=== PATIENT | male | born 1965 | race Caucasian/White ===

== ENCOUNTER 2020-11-03 10:14 | Emergency (ER) | payer MEDICAID, SELFPAY ==
[2020-11-03 10:14] VITALS: BP 157/92; PULSE 81; RESP 18; TEMP 36.7; O2SAT 97; BMI 36.6
--- NOTE | 2020-11-03 10:17 | HMH.EDGENADL ---
ED Disposition Clinical Impression: Thrombocytopenia CHF (congestive heart failure) Qualifiers: Heart failure type: other Qualified Code(s): I50.9 - Heart failure, unspecified Disposition: Home, Self-Care Condition on Discharge: Good Referrals: PCP,No [Non-Staff] - Time of Disposition: 11:37 - Critical Care Critical Care Time: No Attestation: On 11/03/20, the high probability of a clinically significant, sudden or life threatening deterioration of the following system(s) required my full and direct attention, intervention and personal management. The time I documented below is in addition to time spent performing reported procedures but includes the following listed in this critical care notation. Medical Decision Making - Medical Records Medical records reviewed: Yes: I reviewed the patient's medical records. - Luis Inquiry Pt receiving controlled substance: No Vital Signs: 11/03/20 10:14 11/03/20 10:41 11/03/20 11:00 Temperature 98.0 F Temperature Source Oral Pulse Rate 82 84 Pulse Rate [Right] 81 Respiratory Rate 18 Blood Pressure 148/89 H 159/96 H Blood Pressure [Right Arm] 157/92 H Blood Pressure Mean 98 109 Blood Pressure Mean [Right Arm] 113 02 Sat by Pulse Oximetry 97 100 99 - Lab Data Lab results reviewed: Yes: I reviewed the patient's lab results. Lab Results 11/03/20 10:41: Sodium 139, Potassium 3.5, Chloride 110 H, Carbon Dioxide 24, Anion Gap 8.5, BUN 7 L, Creatinine 0.60 L, Estimated Creat Clear 238, Estimated GFR 139, Est GFR ( Amer) 169, Glucose 102 H, Calcium 8.3 L, NT-Pro-B Natriuret Pep 141 H 11/03/20 10:41: WBC 3.4 L, RBC 3.90 L, Hgb 11.5 L, Hct 35.2 L, MCV 90.3, MCH 29.6, MCHC 32.8, RDW 15.2, Plt Count 88 L, MPV 9.2, Neut % (Auto) 56.1, Lymph % (Auto) 29.1, [place] % (Auto) 8.0, Eos % (Auto) 5.4, Baso % (Auto) 1.3, Neut # (Auto) 1.9, Lymph # (Auto) 1.0, [place] # (Auto) 0.3, Eos # (Auto) 0.2, Baso # (Auto) 0.0 Result diagrams: 11/03/20 10:41 11/03/20 10:41 Orders (Tests/Meds): ED MEDICATIONS Discontinued Medications Generic Name Dose Route Start Last Admin Trade Name Brittany PRN Reason Stop Dose Admin Furosemide 20 mg 11/03/20 11:27 Furosemide 20 Mg/2 Ml Vial IV 11/03/20 11:28 ONCE ONE Medical Decision Narrative: 55yo M evaluated secondary to chronic leg pain. Patient's exam is unremarkable except for pitting lower extremity edema. He reports he does not take a diuretic. Patient also states Dr. Andre instructed him to come to the emergency department today; Dr. Andre [place] currently out of the country on vacation. Patient's laboratory studies are unremarkable except for a BNP of 141 and a low platelet count. Patient is treated with 1 dose of IV Lasix. General Adult HPI - General Stated complaint: LEG PAIN Time Seen by Provider: 11/03/20 10:17 Mode of Arrival: EMS - History of Present Illness HPI narrative: 55yo M that denies significant past medical history reports taking no medications daily presents to the emergency department secondary to leg pain. States has had leg pain for approximately 1 year. States he just seems worse today. He denies any fever, cough, shortness of breath, nausea/vomiting/diarrhea. - Related Data Home Medications Medication Instructions Recorded Confirmed folic acid 1 mg tablet 1 mg PO DAILY 10/16/20 10/16/20 lactulose 10 gram/15 mL (15 mL) 10 g PO DAILY 10/16/20 10/16/20 oral solution propranolol 10 mg tablet 10 mg PO BID 10/16/20 10/16/20 thiamine mononitrate (vit B1) 100 100 mg PO DAILY 10/16/20 10/16/20 mg tablet Previous Rx's Medication Instructions Recorded gabapentin 800 mg tablet 800 mg PO TID #90 tab 10/16/20 oxycodone 10 mg tablet 10 mg PO QID PRN #120 tab 10/16/20 Allergies Allergy/AdvReac Type Severity Reaction Status Date / Time No Known Allergies Allergy Verified 10/16/20 15:13 [facility] History - Hepatitis A Screen Drug use history?: No Attest
[2020-11-03 10:41] VITALS: BP 148/89; PULSE 82; O2SAT 100
[2020-11-03 10:52] LABS: Basophils % 1.3 % (0.1-2.0); Eosinophils # 0.2 K/mm3 (0.0-0.4); Eosinophils % 5.4 % (0.1-12.0); Hematocrit 35.2 % (42.0-52.0); Hemoglobin 11.5 g/dL (14.1-18.0); Lymphocytes % 29.1 % (10-50); Mean Corpuscular HGB Conc 32.8 g/dL (31.8-35.4); Mean Corpuscular Hemoglobin 29.6 pg (27.0-31.2); Mean Corpuscular Volume 90.3 fl (80-94); Mean Platelet Volume 9.2 fl (7.4-10.4); Monocytes # 0.3 K/mm3 (0.1-1.0); Neutrophils # 1.9 K/mm3 (1.8-7.8); Neutrophils % 56.1 % (37.0-80.0); Platelet Count 88 K/mm3 (142-424); Red Cell Distribution Width 15.2 % (11.5-17.5); White Blood Count 3.4 K/mm3 (4.8-10.8)
[2020-11-03 11:00] VITALS: BP 159/96; PULSE 84; O2SAT 99
[2020-11-03 11:02] LABS: Chloride 110 mmol/L (98-107); Potassium 3.5 mmoL/L (3.5-5.1); Sodium 139 mmol/L (136-145)
[2020-11-03 11:05] LABS: Anion Gap 8.5 mEq/L (5-15); Blood Urea Nitrogen 7 mg/dl (9-20); Calcium 8.3 mg/dl (8.4-10.2); Carbon Dioxide 24 mmol/L (22.0-30.0); Creatinine Clearance Estimated 238 mL/min (50-200); Estimated Glomerular Filt Rate 139 ml/min (>60); GFR (African American) 169 ML/MIN (>60); Glucose 102 mg/dl (74-100)
[2020-11-03 11:15] LABS: NT Pro Brain Natriuretic Pep. 141 pg/mL (0-125)
--- NOTE | 2020-11-03 11:46 | PC.NURSE ---
Called care management for transportation of pt back to residence.
--- NOTE | 2020-11-03 12:03 | SW/DCPLANNER ---
I have set this patient up with [facility] from ED.
[2020-11-03 12:21] VITALS: BP 142/94; PULSE 81; RESP 18; TEMP 36.7; O2SAT 100
== END 2020-11-03 12:22 | disposition home or self-care (01) ==
PROVIDERS: Emergency Provider Family Medicine; PCP Emergency Medicine
DX: D69.6 Thrombocytopenia, unspecified (principal); I50.9 Heart failure, unspecified; F17.210 Nicotine dependence, cigarettes, uncomplicated
CPT/HCPCS: 80048; 83880; 85025; 96374; 99281

== ENCOUNTER → 2021-01-06 13:43 | Outpatient (CLI) | payer MEDICAID, SELFPAY ==
[2021-01-06 14:20] LABS: Amphetamine/Metha Screen,Urine Negative ng/ml (<1000)
[2021-01-06 14:22] LABS: Barbiturates Screen,Urine Negative ng/ml (<200); Benzodiazepines Screen,Urine Positive ng/ml (<200)
[2021-01-06 14:23] LABS: Cannabinoid Screen,Urine Negative ng/ml (<50); Cocaine Screen,Urine Negative ng/ml (<300)
[2021-01-06 14:24] LABS: Methadone Screen,Urine Negative ng/ml (<300)
[2021-01-06 14:25] LABS: Opiate Screen,Urine Negative ng/ml (<300); Phencyclidine Screen,Urine Negative ng/ml (<25)
== END ==
PROVIDERS: Visit Provider Emergency Medicine
DX: Z79.899 Other long term (current) drug therapy (principal)
CPT/HCPCS: 80305

== ENCOUNTER → 2021-05-28 14:49 | Outpatient (CLI) | payer MEDICAID, SELFPAY ==
[2021-05-28 17:37] LABS: Amphetamine/Metha Screen,Urine Negative ng/ml (<1000); Barbiturates Screen,Urine Negative ng/ml (<200)
[2021-05-28 17:38] LABS: Benzodiazepines Screen,Urine Positive ng/ml (<200)
[2021-05-28 17:39] LABS: Cannabinoid Screen,Urine Negative ng/ml (<50); Cocaine Screen,Urine Negative ng/ml (<300)
[2021-05-28 17:40] LABS: Methadone Screen,Urine Negative ng/ml (<300); Opiate Screen,Urine Positive ng/ml (<300)
[2021-05-28 17:41] LABS: Phencyclidine Screen,Urine Negative ng/ml (<25)
== END ==
PROVIDERS: Visit Provider Emergency Medicine
DX: Z79.899 Other long term (current) drug therapy (principal)
CPT/HCPCS: 80305

== ENCOUNTER → 2021-10-06 10:44 | Outpatient (CLI) | payer MEDICAID, SELFPAY ==
[2021-10-06 12:28] LABS: Alanine Aminotransferase 15 U/L (12-78); Albumin Level 3.3 g/dl (3.5-5.0); Alkaline Phosphatase 94 U/L (38-126); Anion Gap 7.3 mEq/L (5-15); Aspartate Amino Transferase 43 U/L (17-59); Bilirubin,Total 1.8 mg/dl (0.2-1.3); Blood Urea Nitrogen 15 mg/dl (9-20); Calcium 8.2 mg/dl (8.4-10.2); Carbon Dioxide 25 mmol/L (22.0-30.0); Chloride 108 mmol/L (98-107); Chol/HDL Ratio 1.8 (1-3.5); Cholesterol 119 mg/dl (140-200); Estimated Glomerular Filt Rate 139 ml/min (>60); GFR (African American) 168 ML/MIN (>60); Globulin 3.2 g/dL (1.3-3.2); Glucose 97 mg/dl (74-100); HDL Cholesterol 68 mg/dl (40-60); Potassium 3.3 mmoL/L (3.5-5.1); Sodium 137 mmol/L (136-145); Total Protein,Serum 6.5 g/dl (6.3-8.2); Triglycerides 37 mg/dl (30-150); VLDL Cholesterol 7 mg/dL (0-40)
[2021-10-06 12:43] LABS: 25-OH Vitamin D, Total 16.1 ng/mL (30-100)
[2021-10-06 12:48] LABS: Basophils # 0.1 K/mm3 (0-0.2); Basophils % 1.5 % (0.1-2.0); Eosinophils # 0.2 K/mm3 (0.0-0.4); Eosinophils % 4.1 % (0.1-12.0); Hemoglobin 13.1 g/dL (14.1-18.0); Lymphocytes # 0.9 K/mm3 (0.7-4.5); Lymphocytes % 25.7 % (10-50); Mean Corpuscular Hemoglobin 30.5 pg (27.0-31.2); Mean Corpuscular Volume 95.4 fl (80-94); Mean Platelet Volume 10.1 fl (7.4-10.4); Monocytes # 0.3 K/mm3 (0.1-1.0); Monocytes % 7.5 % (1.7-9.3); Neutrophils # 2.2 K/mm3 (1.8-7.8); Neutrophils % 61.2 % (37.0-80.0); Platelet Count 80 K/mm3 (142-424); Red Blood Count 4.29 M/mm3 (4.60-6.20); Red Cell Distribution Width 14.6 % (11.5-17.5); White Blood Count 3.6 K/mm3 (4.8-10.8)
[2021-10-06 13:07] LABS: Free T4 (Free Thyroxine) 1.11 ng/dl (0.78-2.19)
[2021-10-06 13:15] LABS: Direct LDL Cholesterol 33.05 mg/dL (100-129)
[2021-10-06 16:10] LABS: Benzodiazepines Screen,Urine Negative ng/ml (<200)
[2021-10-06 16:11] LABS: Amphetamine/Metha Screen,Urine Negative ng/ml (<1000); Barbiturates Screen,Urine Negative ng/ml (<200)
[2021-10-06 16:12] LABS: Cannabinoid Screen,Urine Positive ng/ml (<50)
[2021-10-06 16:13] LABS: Cocaine Screen,Urine Negative ng/ml (<300); Methadone Screen,Urine Negative ng/ml (<300)
[2021-10-06 16:14] LABS: Opiate Screen,Urine Negative ng/ml (<300)
[2021-10-06 16:15] LABS: Phencyclidine Screen,Urine Negative ng/ml (<25)
[2021-10-06 19:10] LABS: Thyroid Stimulating Hormone 2.62 uIU/mL (0.465-4.68)
== END ==
PROVIDERS: Visit Provider Emergency Medicine
DX: E66.3 Overweight (principal); E55.9 Vitamin D deficiency, unspecified; Z79.899 Other long term (current) drug therapy; Z68.31 Body mass index [BMI] 31.0-31.9, adult
CPT/HCPCS: 36415; 80053; 80061; 80305; 82306; 84439; 84443; 85025

== ENCOUNTER → 2021-12-01 16:00 | Outpatient (CLI) | payer MEDICAID, SELFPAY ==
[2021-12-01 13:41] LABS: Amphetamine/Metha Screen,Urine Negative ng/ml (<1000)
[2021-12-01 13:42] LABS: Barbiturates Screen,Urine Negative ng/ml (<200); Benzodiazepines Screen,Urine Positive ng/ml (<200)
[2021-12-01 13:43] LABS: Cannabinoid Screen,Urine Positive ng/ml (<50); Cocaine Screen,Urine Negative ng/ml (<300)
[2021-12-01 13:44] LABS: Methadone Screen,Urine Negative ng/ml (<300)
[2021-12-01 13:45] LABS: Opiate Screen,Urine Positive ng/ml (<300); Phencyclidine Screen,Urine Negative ng/ml (<25)
== END ==
PROVIDERS: Visit Provider Emergency Medicine
DX: Z79.899 Other long term (current) drug therapy (principal)
CPT/HCPCS: 80305

== ENCOUNTER → 2022-04-05 16:23 | Outpatient (CLI) | payer MEDICAID, SELFPAY ==
[2022-04-05 13:45] LABS: Benzodiazepines Screen,Urine Negative ng/ml (<200)
[2022-04-05 13:46] LABS: Amphetamine/Metha Screen,Urine Negative ng/ml (<1000); Barbiturates Screen,Urine Negative ng/ml (<200)
[2022-04-05 13:47] LABS: Methadone Screen,Urine Negative ng/ml (<300)
[2022-04-05 13:48] LABS: Cannabinoid Screen,Urine Positive ng/ml (<50); Cocaine Screen,Urine Negative ng/ml (<300)
[2022-04-05 13:49] LABS: Opiate Screen,Urine Positive ng/ml (<300); Phencyclidine Screen,Urine Negative ng/ml (<25)
== END ==
PROVIDERS: PCP Emergency Medicine; Visit Provider Emergency Medicine
DX: Z79.899 Other long term (current) drug therapy (principal)
CPT/HCPCS: 80305

== ENCOUNTER → 2022-06-03 11:26 | Outpatient (CLI) | payer MEDICAID, SELFPAY ==
[2022-06-03 15:33] LABS: Amphetamine/Metha Screen,Urine Negative ng/ml (<1000)
[2022-06-03 15:35] LABS: Barbiturates Screen,Urine Negative ng/ml (<200); Benzodiazepines Screen,Urine Negative ng/ml (<200)
[2022-06-03 15:36] LABS: Cannabinoid Screen,Urine Positive ng/ml (<50); Cocaine Screen,Urine Negative ng/ml (<300)
[2022-06-03 15:37] LABS: Methadone Screen,Urine Negative ng/ml (<300)
[2022-06-03 15:38] LABS: Opiate Screen,Urine Negative ng/ml (<300); Phencyclidine Screen,Urine Negative ng/ml (<25)
== END ==
PROVIDERS: PCP Emergency Medicine; Visit Provider Emergency Medicine
DX: Z79.899 Other long term (current) drug therapy (principal)
CPT/HCPCS: 80305

== ENCOUNTER → 2022-08-01 11:29 | Outpatient (CLI) | payer MEDICAID, SELFPAY ==
[2022-08-01 16:26] LABS: Amphetamine/Metha Screen,Urine Negative ng/ml (<1000)
[2022-08-01 16:27] LABS: Barbiturates Screen,Urine Negative ng/ml (<200); Benzodiazepines Screen,Urine Negative ng/ml (<200)
[2022-08-01 16:28] LABS: Cannabinoid Screen,Urine Positive ng/ml (<50)
[2022-08-01 16:29] LABS: Cocaine Screen,Urine Negative ng/ml (<300)
[2022-08-01 16:30] LABS: Methadone Screen,Urine Negative ng/ml (<300)
[2022-08-01 16:31] LABS: Opiate Screen,Urine Positive ng/ml (<300)
[2022-08-01 16:32] LABS: Phencyclidine Screen,Urine Negative ng/ml (<25)
== END ==
PROVIDERS: PCP Emergency Medicine; Visit Provider Emergency Medicine
DX: Z79.899 Other long term (current) drug therapy (principal)
CPT/HCPCS: 80305

== ENCOUNTER → 2022-09-23 23:29 | Outpatient (CLI) | payer MEDICAID, SELFPAY ==
[2022-09-23 18:28] LABS: Amphetamine/Metha Screen,Urine Negative ng/ml (<1000); Barbiturates Screen,Urine Negative ng/ml (<200)
[2022-09-23 18:29] LABS: Benzodiazepines Screen,Urine Positive ng/ml (<200)
[2022-09-23 18:30] LABS: Cannabinoid Screen,Urine Negative ng/ml (<50); Cocaine Screen,Urine Negative ng/ml (<300)
[2022-09-23 18:31] LABS: Methadone Screen,Urine Negative ng/ml (<300); Opiate Screen,Urine Positive ng/ml (<300)
[2022-09-23 18:32] LABS: Phencyclidine Screen,Urine Negative ng/ml (<25)
== END ==
PROVIDERS: PCP Emergency Medicine; Visit Provider Emergency Medicine
DX: G89.21 Chronic pain due to trauma (principal)
CPT/HCPCS: 80305

== ENCOUNTER → 2022-11-15 16:11 | Outpatient (CLI) | payer MEDICAID, SELFPAY ==
[2022-11-15 16:55] LABS: Basophils % 0.5 % (0.1-2.0); Eosinophils # 0.1 K/mm3 (0.0-0.4); Eosinophils % 2.4 % (0.1-12.0); Hematocrit 40.8 % (42.0-52.0); Lymphocytes # 0.5 K/mm3 (0.7-4.5); Lymphocytes % 15.7 % (10-50); Mean Corpuscular HGB Conc 31.9 g/dL (31.8-35.4); Mean Platelet Volume 9.7 fl (7.4-10.4); Monocytes # 0.3 K/mm3 (0.1-1.0); Monocytes % 8.4 % (1.7-9.3); Neutrophils # 2.5 K/mm3 (1.8-7.8); Neutrophils % 72.9 % (37.0-80.0); Platelet Count 84 K/mm3 (142-424); Red Blood Count 4.35 M/mm3 (4.60-6.20); Red Cell Distribution Width 14.7 % (11.5-17.5); White Blood Count 3.4 K/mm3 (4.8-10.8)
[2022-11-15 16:57] LABS: Ammonia 55 umol/L (9-30)
[2022-11-15 16:59] LABS: INR 1.33 (0.9-1.1); Prothrombin Time 14.1 seconds (10.1-12.5)
[2022-11-15 17:20] LABS: Alanine Aminotransferase 12 U/L (12-78); Albumin/Globulin Ratio 0.9 (1.1-1.8); Alkaline Phosphatase 89 U/L (38-126); Anion Gap 5.9 mEq/L (5-15); Aspartate Amino Transferase 41 U/L (17-59); Bilirubin,Total 1.7 mg/dl (0.2-1.3); Blood Urea Nitrogen 13 mg/dl (9-20); Calcium 8.1 mg/dl (8.4-10.2); Carbon Dioxide 31 mmol/L (22.0-30.0); Chloride 106 mmol/L (98-107); Chol/HDL Ratio 2.4 (1-3.5); Cholesterol 128 mg/dl (140-200); Estimated Glomerular Filt Rate 116 ml/min (>60); GFR (African American) 140 ML/MIN (>60); Globulin 3.3 g/dL (1.3-3.2); Glucose 93 mg/dl (74-100); HDL Cholesterol 53 mg/dl (40-60); Potassium 3.9 mmoL/L (3.5-5.1); Sodium 139 mmol/L (136-145); Total Protein,Serum 6.3 g/dl (6.3-8.2); Triglycerides 42 mg/dl (30-150); VLDL Cholesterol 8 mg/dL (0-40)
[2022-11-15 17:31] LABS: Direct LDL Cholesterol 36.83 mg/dL (100-129)
[2022-11-15 17:51] LABS: Thyroid Stimulating Hormone 1.83 uIU/mL (0.465-4.68)
[2022-11-15 18:10] LABS: Vitamin B12 815 pg/mL (239-931)
[2022-11-15 19:03] LABS: Free T4 (Free Thyroxine) 1.26 ng/dl (0.78-2.19)
== END ==
PROVIDERS: PCP Emergency Medicine; Visit Provider Emergency Medicine
DX: D69.6 Thrombocytopenia, unspecified (principal); I50.9 Heart failure, unspecified; E66.3 Overweight; Z68.31 Body mass index [BMI] 31.0-31.9, adult; Z79.899 Other long term (current) drug therapy
CPT/HCPCS: 36415; 80053; 80061; 82140; 82607; 84439; 84443; 85025; 85610

== ENCOUNTER → 2023-01-10 23:11 | Outpatient (CLI) | payer MEDICAID, SELFPAY ==
[2023-01-10 20:50] LABS: Amphetamine/Metha Screen,Urine Positive ng/ml (<1000); Barbiturates Screen,Urine Negative ng/ml (<200)
[2023-01-10 20:51] LABS: Benzodiazepines Screen,Urine Positive ng/ml (<200)
[2023-01-10 20:52] LABS: Cannabinoid Screen,Urine Negative ng/ml (<50)
[2023-01-10 20:53] LABS: Cocaine Screen,Urine Negative ng/ml (<300); Methadone Screen,Urine Negative ng/ml (<300)
[2023-01-10 20:54] LABS: Opiate Screen,Urine Positive ng/ml (<300)
[2023-01-10 20:55] LABS: Phencyclidine Screen,Urine Negative ng/ml (<25)
== END ==
PROVIDERS: PCP Emergency Medicine; Visit Provider Emergency Medicine
DX: I50.9 Heart failure, unspecified (principal); B96.89 Other specified bacterial agents as the cause of diseases classified elsewhere; Z79.899 Other long term (current) drug therapy
CPT/HCPCS: 80305; 87086; 87088; 87186

== ENCOUNTER → 2023-01-11 14:34 | Outpatient (CLI) | payer MEDICAID, SELFPAY ==
[2023-01-11 15:09] LABS: Ammonia 40 umol/L (9-30)
[2023-01-11 15:29] LABS: INR 1.44 (0.9-1.1); Prothrombin Time 15.2 seconds (10.1-12.5)
[2023-01-11 15:33] LABS: Chloride 107 mmol/L (98-107); Potassium 3.5 mmoL/L (3.5-5.1); Sodium 137 mmol/L (136-145)
[2023-01-11 15:36] LABS: Alanine Aminotransferase 18 U/L (12-78); Albumin Level 2.4 g/dl (3.5-5.0); Albumin/Globulin Ratio 0.8 (1.1-1.8); Alkaline Phosphatase 59 U/L (38-126); Anion Gap 9.5 mEq/L (5-15); Aspartate Amino Transferase 48 U/L (17-59); Bilirubin,Total 2.3 mg/dl (0.2-1.3); Blood Urea Nitrogen 14 mg/dl (9-20); Calcium 7.6 mg/dl (8.4-10.2); Carbon Dioxide 24 mmol/L (22.0-30.0); Estimated Glomerular Filt Rate 138 ml/min (>60); GFR (African American) 167 ML/MIN (>60); Globulin 3.2 g/dL (1.3-3.2); Glucose 162 mg/dl (74-100); Total Protein,Serum 5.6 g/dl (6.3-8.2)
== END ==
PROVIDERS: PCP Emergency Medicine; Visit Provider Emergency Medicine
DX: D69.6 Thrombocytopenia, unspecified (principal); I50.9 Heart failure, unspecified; R41.82 Altered mental status, unspecified; R79.1 Abnormal coagulation profile
CPT/HCPCS: 36415; 80053; 82140; 85610

== ENCOUNTER → 2023-01-16 13:15 | Outpatient (CLI) | payer MEDICAID, SELFPAY ==
[2023-01-16 13:01] LABS: Amphetamine/Metha Screen,Urine Negative ng/ml (<1000)
[2023-01-16 13:03] LABS: Barbiturates Screen,Urine Negative ng/ml (<200)
[2023-01-16 13:04] LABS: Benzodiazepines Screen,Urine Negative ng/ml (<200)
[2023-01-16 13:05] LABS: Cannabinoid Screen,Urine Positive ng/ml (<50); Cocaine Screen,Urine Negative ng/ml (<300)
[2023-01-16 13:06] LABS: Methadone Screen,Urine Negative ng/ml (<300)
[2023-01-16 13:07] LABS: Opiate Screen,Urine Negative ng/ml (<300)
[2023-01-16 13:08] LABS: Phencyclidine Screen,Urine Negative ng/ml (<25)
== END ==
PROVIDERS: PCP Emergency Medicine; Visit Provider Emergency Medicine
DX: R82.71 Bacteriuria (principal); Z79.899 Other long term (current) drug therapy
CPT/HCPCS: 80305; 87086

== ENCOUNTER → 2023-03-10 23:50 | Outpatient (CLI) | payer MEDICAID, SELFPAY ==
[2023-03-10 20:49] LABS: Amphetamine/Metha Screen,Urine Negative ng/ml (<1000); Barbiturates Screen,Urine Negative ng/ml (<200)
[2023-03-10 20:50] LABS: Benzodiazepines Screen,Urine Positive ng/ml (<200); Cannabinoid Screen,Urine Negative ng/ml (<50)
[2023-03-10 20:51] LABS: Cocaine Screen,Urine Negative ng/ml (<300)
[2023-03-10 20:52] LABS: Methadone Screen,Urine Negative ng/ml (<300); Opiate Screen,Urine Positive ng/ml (<300)
[2023-03-10 20:53] LABS: Phencyclidine Screen,Urine Negative ng/ml (<25)
== END ==
PROVIDERS: PCP Emergency Medicine; Visit Provider Emergency Medicine
DX: N39.0 Urinary tract infection, site not specified (principal); Z79.899 Other long term (current) drug therapy; B96.29 Other Escherichia coli [E. coli] as the cause of diseases classified elsewhere
CPT/HCPCS: 80305; 87086; 87088; 87186

== ENCOUNTER → 2023-05-01 11:31 | Outpatient (CLI) | payer MEDICAID, SELFPAY | PROVIDERS: PCP Emergency Medicine; Visit Provider Nurse Practitioner Family | DX: R60.0 Localized edema (principal); R06.00 Dyspnea, unspecified ==

== ENCOUNTER → 2023-05-08 11:18 | Outpatient (CLI) | payer MEDICAID, SELFPAY ==
--- NOTE | 2023-05-08 11:23 | NM_ITS ---
APPROVED REPORT Exam: Nuclear Stress Test Indication: chest pain..soa Patient Location: Outpatient Stress Tech: Sadaf Carter [place] Tech:SAIMA Solis RT (R)(N)(M) Ht: 5 ft 11 in Wt: 203 lbs HR: 65 bpm BP: 147/84 mmHg BSA: 2.12 m2 Rhythm: NSR TID: 1.10 BMI: 28.3 History: chest pain..soa Procedure: Patient received 0.8 mg of intravenous Lexiscan, resting heart rate 65 bpm, resting blood pressure 147/84 mmHg, with Lexiscan maximum heart rate achieved was 87 bpm which is 85 % of the maximum predicted heart rate and blood pressure was 175/85 mmHg. With Lexiscan, patient denied any complaint of chest pain. The pt was not able to lay on his abdomen for prone images. Cardiac Stress and Resting SPECT Images: Cardiac Stress and Resting SPECT images were obtained using technetium 99m Myoview 31.3 mCi stress and 10.32 mCi at rest. The patient could not lie on his abdomen. Therefore, prone stress imaging could not be performed. This may affect the diagnostic interpretation of the study findings. Resting and stress imaging in supine position demonstrate no definite evidence of fixed or reversible perfusion defects. Gated imaging demonstrates normal global and regional LV systolic function. LVEF is calculated at 55%. Conclusion: No definite evidence of fixed or reversible perfusion defects. Gated imaging demonstrates normal global and regional LV systolic function. LVEF is calculated at 55%. Electronically signed by : Edwige Beard MD 05/13/2023 22:46:23
--- NOTE | 2023-05-08 14:08 | CA_ITS ---
APPROVED REPORT Exam: Pharmacologic Technologist: Sadaf Carter Ht: 6 ft 0 in Wt: 205 lbs BSA: 2.15 m2 HR: 65 bpm BP: 147/84 mmHg Rhythm: NSR Indications: Edema, Dyspnea Medical History Medications: Gabapentin,,,,, Combivent,,,,, ClonAZEPAM,,,,, OxYCODONE,,,,, SpirOnolactone,,,,, Lactulose,,,,, Levaflexacin,,,,, Stress Test Details Test: LEXISCAN HR Resting HR: 65 bpm Max Heart Rate (APMHR): 162 bpm Max HR Achieved: 87 bpm Target HR (85% APMHR): 138 bpm % of APMHR: 54 Recovery HR: 65 bpm BP Resting BP: 147.0/84.0 mmHg Max BP: 175.0/85.0 mmHg Recovery BP: 158.0/80.0 mmHg ECG Resting ECG: Sinus rhythm Stress ECG: No significant ST changes Arrhythmia: PACs Clinical Exercise duration: 04:00 min Highest Stage Achieved: Stress ECG Conclusion Symptoms: None Arrhythmias/Ectopy: PAC's ST-T Changes: No significant ST changes Conclusion: Unremarkable Lexiscan stress test. Myoview images are reported separately. Test Summary REST . . . . . . . Resting REST 01:48 . . 65 . 147/ 84 . . Stage 1 . . . . . . . Myoview Injected Stage 1 01:00 . . 87 . . . . Stage 2 01:00 . . 82 . 136/ 82 . . Stage 3 01:00 . . 76 . 125/ 83 . . Stage 4 01:00 . . 73 . . . Stop exercise at 04:00 RECOVERY 01:00 . . 77 . 150/ 88 . . RECOVERY 02:00 . . 65 . 156/ 90 . . RECOVERY 03:00 . . 70 . 163/ 79 . . RECOVERY 04:00 . . 67 . 163/ 79 . . RECOVERY 05:00 . . 65 . 164/ 82 . . RECOVERY 06:00 . . 63 . 164/ 82 . . RECOVERY 06:33 . . 65 . 158/ 80 . . Electronically signed by : Edwige Beard MD 05/13/2023 22:44:37
[2023-05-08 18:49] LABS: Amphetamine/Metha Screen,Urine Negative ng/ml (<1000); Barbiturates Screen,Urine Negative ng/ml (<200)
[2023-05-08 18:50] LABS: Cannabinoid Screen,Urine Positive ng/ml (<50)
[2023-05-08 18:51] LABS: Benzodiazepines Screen,Urine Positive ng/ml (<200); Methadone Screen,Urine Negative ng/ml (<300)
[2023-05-08 18:52] LABS: Cocaine Screen,Urine Negative ng/ml (<300)
[2023-05-08 18:53] LABS: Opiate Screen,Urine Positive ng/ml (<300); Phencyclidine Screen,Urine Negative ng/ml (<25)
== END ==
LOC: RAD 11:18
PROVIDERS: PCP Emergency Medicine; Visit Provider Nurse Practitioner Family
DX: R60.0 Localized edema (principal); I50.9 Heart failure, unspecified; Z79.899 Other long term (current) drug therapy; E66.9 Obesity, unspecified; Z68.27 Body mass index [BMI] 27.0-27.9, adult; Z72.0 Tobacco use
CPT/HCPCS: 78452; 80305; 93017; A9502; J2785

== ENCOUNTER → 2023-05-08 23:47 | Outpatient (CLI) | payer MEDICAID, SELFPAY | PROVIDERS: PCP Emergency Medicine; Visit Provider Emergency Medicine | DX: G89.21 Chronic pain due to trauma (principal) ==

== ENCOUNTER 2023-07-31 23:36 | Outpatient (CLI) | payer MEDICAID, SELFPAY ==
[2023-07-31 20:54] LABS: Amphetamine/Metha Screen,Urine Negative ng/ml (<1000); Barbiturates Screen,Urine Negative ng/ml (<200); Benzodiazepines Screen,Urine Negative ng/ml (<200); Cannabinoid Screen,Urine Negative ng/ml (<50); Cocaine Screen,Urine Negative ng/ml (<300); Methadone Screen,Urine Negative ng/ml (<300); Opiate Screen,Urine Positive ng/ml (<300); Phencyclidine Screen,Urine Negative ng/ml (<25)
== END 2023-07-31 23:59 ==
LOC: LAB.DROPOF 23:36
PROVIDERS: PCP Internal Medicine; Visit Provider Internal Medicine
DX: Z79.899 Other long term (current) drug therapy (principal)
CPT/HCPCS: 80307

== ENCOUNTER 2023-08-01 09:19 | Outpatient (CLI) | payer MEDICAID, SELFPAY ==
--- NOTE | 2023-08-01 09:22 | XR_ITS ---
FINAL REPORT CLINICAL HISTORY: osteporosis FINDINGS: Using L1-4, the bone mineral density of the spine is 1.318 g/cm2, corresponding to T-score of 2.1. Using the right hip, the bone mineral density of the femoral neck is 1.195 g/cm2, corresponding to a T-score of 1.1. Using the distal third of the left radius, the bone mineral density of the femoral neck is 0.844 g/cm2, corresponding to a T-score of 1.3. IMPRESSION: Normal bone mineral density of the lumbar spine, right hip and distal third of the left radius. Reviewed, Interpreted and Dictated by Josh Verdugo III, MD Transcribed by Dewey Diaz Authenticated and . [facility]
== END 2023-08-01 23:59 ==
LOC: RAD 09:19
PROVIDERS: PCP Internal Medicine; Visit Provider Internal Medicine
DX: M81.0 Age-related osteoporosis without current pathological fracture (principal); M54.9 Dorsalgia, unspecified
CPT/HCPCS: 77080